=== PATIENT | male | born 1945 | race Caucasian/White ===

== ENCOUNTER 2017-05-23 10:27 | Emergency (ER) | payer OTHER ==
[2017-05-23] MEDS ORDERED: Fentanyl 100 MCG/2 ML VIAL ONE ×3 (11:13→13:51)
--- NOTE | 2017-05-23 11:39 | CT ---
CT BRAIN WITHOUT CONTRAST: Date: 05/23/17 HISTORY: 6' fall while hanging [place] lights, with head pain. COMPARISON: Prior exam dated 03/08/08. FINDINGS: No acute intracranial infarct, hemorrhage, or hydrocephalus is present. Chronic small vessel white ma tter ischemic change is similar. Septum pellucidum and third ventricle are midline. Small mucus reten tion cysts are seen within the inferior aspect of both maxillary sinuses. Skull intact. IMPRESSION: No acute intracranial abnormality. POS: [facility]
--- NOTE | 2017-05-23 11:56 | CT ---
CT OF THE CERVICAL SPINE WITHOUT CONTRAST: INDICATION: Fall 6 foot. Neck pain. COMPARISON: Prior exam dated 08/26/15. FINDINGS: No acute fracture or subluxation is evident. Lung apices are clear. Prevertebral soft tissues appea r within normal limits. There is an ACDF C5 through C7. This does not appear appreciably changed fr om the comparison. Multilevel spondylosis of the cervical spine is similar-appearing. IMPRESSION: No acute fracture or subluxation demonstrated. POS: [facility]
--- NOTE | 2017-05-23 12:07 | CT ---
CT OF THE LUMBAR SPINE WITHOUT CONTRAST: INDICATION: Fell 6 feet while hanging [place] now with back pain. FINDINGS: There is a mild superior end plate compression abnormality of L2. There is multilevel degenerative d isk disease most pronounced at L3-4 through L5-S1. There are laminectomy changes at L4. There is re moval of the spinous process at L3. There are scattered vascular calcifications involving the abdomi nopelvic vasculature. There is prominent atrophy of the left kidney. IMPRESSION: 1. Superior end plate compression fracture of L2. 2. Moderate spondylosis of the lumbar spine. 3. Significant atrophy of the left kidney. POS: [facility]
--- NOTE | 2017-05-23 12:11 | CT ---
THORACIC SPINE CT WITHOUT CONTRAST: Date: 05/23/17 HISTORY: 6' fall while hanging [place]. Patient landed on his hip and hit his left shoulder upon fall . Post-traumatic pain. COMPARISON: None. TECHNIQUE: A thoracic spine CT is performed without contrast. Reformatted images are submitted for interpretatio n. FINDINGS: No mediastinal mass, lymphadenopathy, or hematoma. Heart size appears to be within normal limits. The re are coronary artery calcifications. There is calcification of the aorta. No evidence of aneurysm. Visualized upper solid organs are grossly unremarkable. There is atrophy of the left kidney, likely chronic and possibly congenital. No retroperitoneal mass, lymphadenopathy, or hematoma. No paraspinal hematoma. There is patchy ground-glass opacification throughout the lung parenchyma which may represent chronic edema superimposed upon chronic change. There is multilevel degenerative disc disease with loss of disc space height and osteophyte formation . Vacuum disc phenomenon is identified. Thoracic spine vertebral body height is maintained. No fractu re. No malalignment. Limited evaluation of the contents of the central spinal canal and neural foramina due to technique. No high grade central canal stenosis or high grade foraminal narrowing. Incompletely evaluated cervical fusion hardware. At the T4-T5 level, there is soft tissue density with a small calcification. Evaluation is limited an d incomplete. There is associated mild central canal stenosis. Nonemergent thoracic spine MRI can be performed. IMPRESSION: 1. No fracture. 2. Degenerative changes of thoracic spine. 3. Soft tissue density with calcification in the anterior epidural space at the T4-T5 level, incompl etely evaluated. No evidence of high grade central canal stenosis. Nonemergent thoracic spine MRI. POS: [facility]
--- NOTE | 2017-05-23 12:17 | RAD ---
3 VIEWS LEFT SHOULDER: Date: 05/23/17 HISTORY: Patient fell from a height of 6' while hanging [place] lights. COMPARISON: None. FINDINGS: Limited evaluation of the glenohumeral joint space due to patient position. There does appear to be d egenerative change in the left glenohumeral joint space. Osteophyte change and enthesopathic change i s noted. No fracture or dislocation. IMPRESSION: Degenerative changes. No fracture or dislocation. POS: [facility]
== END 2017-05-23 14:38 | disposition home or self-care (01) ==
LOC: ERS 10:27
DX: S32.029A Unspecified fracture of second lumbar vertebra, initial encounter for closed fracture (principal); M25.512 Pain in left shoulder; E78.5 Hyperlipidemia, unspecified; I10 Essential (primary) hypertension; E11.9 Type 2 diabetes mellitus without complications; F32.9 Major depressive disorder, single episode, unspecified; Z85.828 Personal history of other malignant neoplasm of skin; W11.XXXA Fall on and from ladder, initial encounter
CPT/HCPCS: 70450; 72125; 72128; 72131; 96372; J3010

== ENCOUNTER 2019-12-17 19:20 | Emergency (ER) | payer OTHER ==
[~2019-12-17 19:20] MED LIST: Iopamidol 370 76% 100 ML VIAL ONE
[2019-12-17 21:07] LABS: #Basophils 0.1 thou/uL (0.0-0.2); #Lymphocytes 1.5 thou/uL (1.20-3.40); #Monocytes 1.2 thou/uL (0.11-0.59); #Neutrophils 9.6 thou/uL (1.40-6.50); %Basophils 0.5 % (0.0-1.0); %Eosinophils 0.3 % (0.0-10.0); %Lymphocytes 11.9 % (21.0-51.0); %Neutrophils 77.3 % (42.0-75.0); Hemoglobin 15.1 g/dL (14.0-18.0); Mean Corpuscular HGB CONC 35.3 g/dL (32.0-36.0); Mean Corpuscular Hemoglobin 33.3 pg (27.0-31.0); Mean Corpuscular Volume 94.4 fL (78.0-98.0); Mean Platelet Volume 8.2 fL (7.4-10.4); Platelet Count 182 thou/uL (130-400); RBC Distribution Width 11.9 % (11.5-14.5); Red Blood Cell (RBC) Count 4.54 mill/uL (4.70-6.10); White Blood Cell (WBC) Count 12.4 thou/uL (4.8-10.8)
[2019-12-17 21:22] LABS: ALT (SGPT) 15 U/L (8-55); AST (SGOT) 11 U/L (5-34); Albumin 3.9 g/dL (3.4-4.8); Alkaline Phosphatase 92 U/L (40-110); Anion Gap 14 mmol/L (10-20); BUN (Urea Nitrogen) 15 mg/dL (8.4-25.7); Bilirubin, Total 0.9 mg/dL (0.2-1.2); Calc. Creatinine Clearance 0 mL/min (70-130); Calcium 9.2 mg/dL (7.8-10.44); Carbon Dioxide 21 mmol/L (23-31); Chloride 104 mmol/L (98-107); Estimated GFR-MDRD 61; Globulin 2.8 g/dL (2.4-3.5); Glucose 323 mg/dL (83-110); Potassium 4.5 mmol/L (3.5-5.1); Protein, Total 6.7 g/dL (5.8-8.1); Sodium 134 mmol/L (136-145)
[2019-12-17 22:11] LABS: Bacteria/HPF None Seen HPF (None Seen); Bilirubin Negative (Negative); Blood, Urine Negative (Negative); Clarity Clear (Clear); Glucose, Urine (Dipstick) Greater than 1000 mg/dL (Negative); Leukocyte Negative Leu/uL (Negative); Mucous/LPF Rare LPF (<2+); Nitrite Negative (Negative); Protein, Urine (Dipstick) 200 mg/dL (Neg-Trace); RBC/HPF None Seen HPF (0-3); Squamous Epithelial None Seen HPF (0-3); Urobilinogen Normal mg/dL (Less than 2); WBC/HPF 0-3 HPF (0-3)
[2019-12-17] MEDS ORDERED: Cefepime 2 GM VIAL ONE (22:37)
[2019-12-18 00:04] LABS: Lactic Acid 2.3 mmol/L (0.5-2.2)
--- NOTE | 2019-12-18 08:53 | CT ---
CT OF FACIAL BONES PERFORMED WITH INTRAVENOUS CONTRAST ENHANCEMENT: HISTORY: Facial swelling. FINDINGS: The visualized brain parenchyma shows some atrophic change. The carotid and submandibular glands brian ear unremarkable. There is considerable scan artifact related to dental work performed on the maxill a. The parapharyngeal spaces appear clear. The tonsillar region appears unremarkable. Minimal muco jyothi change is seen in the right maxillary sinus. I do not appreciate any evidence of any dental dise ase that would explain any swelling. IMPRESSION: No acute findings. POS: [facility]
--- NOTE | 2019-12-20 12:14 | EKG ---
Test Reason : Blood Pressure : / mmHG Vent. Rate : 082 BPM Atrial Rate : 082 BPM P-R Int : 144 ms QRS Dur : 082 ms QT Int : 368 ms P-R-T Axes : 036 036 085 degrees QTc Int : 429 ms Poor data quality, interpretation may be adversely affected Normal sinus rhythm Possible Inferior infarct , age undetermined Abnormal ECG Confirmed by JERRELL ZALDIVAR, MAR ([id number]), production editor SONIA PENN ([id number]) on 12/20/2019 12:13:52 PM Referred By: Confirmed By:MAR ALLAN MD
== END 2019-12-18 04:35 | disposition short-term general hospital (02) ==
LOC: ERS 19:20
DX: L03.211 Cellulitis of face (principal); D72.829 Elevated white blood cell count, unspecified; R74.0 Nonspecific elevation of levels of transaminase and lactic acid dehydrogenase [LDH]; E11.9 Type 2 diabetes mellitus without complications; E78.5 Hyperlipidemia, unspecified; I10 Essential (primary) hypertension; F32.9 Major depressive disorder, single episode, unspecified; Z79.899 Other long term (current) drug therapy
CPT/HCPCS: 36415; 70487; 80053; 81003; 81015; 83605; 85025; 87040; 93005; 96365; 96366; 96367; J0692; J3370; J7030; Q9967

== ENCOUNTER 2020-09-23 15:12 | Emergency (ER) | payer OTHER ==
[2020-09-23 16:12] LABS: #Basophils 0.1 thou/uL (0.0-0.2); #Eosinphils 0.3 thou/uL (0.0-0.7); #Lymphocytes 2.7 thou/uL (1.20-3.40); #Monocytes 0.9 thou/uL (0.11-0.59); #Neutrophils 6.7 thou/uL (1.40-6.50); %Basophils 0.5 % (0.0-1.0); %Eosinophils 3.2 % (0.0-10.0); %Lymphocytes 24.8 % (21.0-51.0); %Monocytes 8.6 % (0.0-10.0); %Neutrophils 62.8 % (42.0-75.0); Hemoglobin 16.8 g/dL (14.0-18.0); Mean Corpuscular HGB CONC 35.1 g/dL (32.0-36.0); Mean Platelet Volume 8.1 fL (7.4-10.4); Platelet Count 204 thou/uL (130-400); RBC Distribution Width 12.3 % (11.5-14.5); Red Blood Cell (RBC) Count 5.09 mill/uL (4.70-6.10); White Blood Cell (WBC) Count 10.7 thou/uL (4.8-10.8)
[2020-09-23 16:32] LABS: ALT (SGPT) 15 U/L (8-55); AST (SGOT) 9 U/L (5-34); Alkaline Phosphatase 105 U/L (40-110); Anion Gap 15 mmol/L (10-20); BUN (Urea Nitrogen) 14 mg/dL (8.4-25.7); Bilirubin, Total 1.2 mg/dL (0.2-1.2); Calc. Creatinine Clearance 0 mL/min (70-130); Calcium 9.4 mg/dL (7.8-10.44); Carbon Dioxide 24 mmol/L (23-31); Chloride 104 mmol/L (98-107); Globulin 2.8 g/dL (2.4-3.5); Glucose 252 mg/dL (83-110); Potassium 3.8 mmol/L (3.5-5.1); Protein, Total 6.8 g/dL (5.8-8.1); Sodium 139 mmol/L (136-145)
[2020-09-23] MEDS ORDERED: Morphine 4 MG/ML VIAL ONE (16:45)
[2020-09-23] MEDS ORDERED: Ondansetron PF 4 MG/2 ML Vial ONE (16:45)
[2020-09-23] MEDS ORDERED: Ketorolac Tromethamine 30 MG/ML VIAL ONE (20:12)
== END 2020-09-23 20:27 | disposition home or self-care (01) ==
LOC: ERS 15:12
DX: M25.551 Pain in right hip (principal); E11.9 Type 2 diabetes mellitus without complications; E78.5 Hyperlipidemia, unspecified; E78.00 Pure hypercholesterolemia, unspecified; I10 Essential (primary) hypertension; W01.0XXA Fall on same level from slipping, tripping and stumbling without subsequent striking against object, initial encounter
CPT/HCPCS: 36415; 72192; 72195; 80053; 85025; 85652; 86140; 96374; 96375; J1885; J2270; J2405

== ENCOUNTER 2020-10-17 18:00 | Emergency (ER) | payer OTHER ==
[2020-10-17] MEDS ORDERED: Ketorolac Tromethamine 30 MG/ML VIAL ONE (20:45)
[2020-10-17] MEDS ORDERED: Morphine 4 MG/ML VIAL ONE (20:45)
== END 2020-10-17 21:47 | disposition home or self-care (01) ==
LOC: ERS 18:00
DX: M54.5 Low back pain (principal); E11.9 Type 2 diabetes mellitus without complications; E78.5 Hyperlipidemia, unspecified; I10 Essential (primary) hypertension; Z79.899 Other long term (current) drug therapy; Z79.82 Long term (current) use of aspirin; Z79.4 Long term (current) use of insulin
CPT/HCPCS: 96372; 99283; J1885; J2270

== ENCOUNTER 2021-03-17 09:33 | Outpatient (CLI) | payer OTHER | END 2021-03-17 09:34 | disposition home or self-care (01) | LOC: TBSIIMAG 09:33 | PROVIDERS: ATTEND Neurological Surgery | DX: M25.551 Pain in right hip (principal) ==

== ENCOUNTER 2022-07-25 13:51 | Inpatient (IN) | payer OTHER ==
[2022-07-25 15:10] LABS: #Basophils 0.1 thou/uL (0.0-0.2); #Eosinphils 0.4 thou/uL (0.0-0.7); #Lymphocytes 2.5 thou/uL (1.20-3.40); #Monocytes 1.1 thou/uL (0.11-0.59); #Neutrophils 5.2 thou/uL (1.40-6.50); %Basophils 0.9 % (0.0-1.0); %Eosinophils 3.8 % (0.0-10.0); %Lymphocytes 26.9 % (21.0-51.0); %Monocytes 11.7 % (0.0-10.0); %Neutrophils 56.7 % (42.0-75.0); Hemoglobin 16.8 g/dL (14.0-18.0); Mean Corpuscular Hemoglobin 31.8 pg (27.0-31.0); Mean Corpuscular Volume 96.4 fl (78.0-98.0); Mean Platelet Volume 8.1 fL (7.4-10.4); Platelet Count 252 10x3/uL (130-400); RBC Distribution Width 12.5 % (11.5-14.5); Red Blood Cell (RBC) Count 5.28 mill/uL (4.70-6.10); White Blood Cell (WBC) Count 9.2 10x3/uL (4.8-10.8)
[2022-07-25 15:21] LABS: PTT 28.8 sec (22.9-36.1); Prothrombin Time 13.1 sec (12.0-14.7)
[2022-07-25 15:22] LABS: Bacteria/HPF None Seen HPF (None Seen); Bilirubin Negative (Negative); Blood, Urine Negative (Negative); Clarity Clear (Clear); Glucose, Urine (Dipstick) Greater than 1000 mg/dL (Negative); Ketone, Urine Negative (Negative); Leukocyte Negative Leu/uL (Negative); Nitrite Negative (Negative); Protein, Urine (Dipstick) 30 mg/dL (Neg-Trace); RBC/HPF None Seen HPF (0-3); Specific Gravity, Urine 1.027 (1.002-1.036); Squamous Epithelial None Seen HPF (0-3); Urobilinogen Normal mg/dL (Less than 2); WBC/HPF 0-3 HPF (0-3); pH, Urine 5.5 (5.0-9.0)
[2022-07-25 15:30] LABS: ALT (SGPT) 14 U/L (8-55); AST (SGOT) 14 U/L (5-34); Albumin 3.9 g/dL (3.4-4.8); Alkaline Phosphatase 98 U/L (40-110); Anion Gap 17 mmol/L (10-20); BUN (Urea Nitrogen) 18 mg/dL (8.4-25.7); Bilirubin, Total 0.4 mg/dL (0.2-1.2); Calc. Creatinine Clearance 0 mL/min (70-130); Calcium 9.7 mg/dL (7.8-10.44); Carbon Dioxide 24 mmol/L (23-31); Chloride 103 mmol/L (98-107); Estimated GFR 60; Globulin 2.6 g/dL (2.4-3.5); Glucose 157 mg/dL (83-110); Protein, Total 6.5 g/dL (5.8-8.1); Sodium 140 mmol/L (136-145)
[2022-07-25] MEDS ORDERED: hydrALAZINE 20 MG/ML VIAL SLOW IVP PRN (16:37)
[2022-07-25] MEDS ORDERED: Ondansetron PF 4 MG/2 ML Vial IVP PRN (16:37)
[2022-07-25] MEDS ORDERED: Ondansetron ODT 4 MG TAB PO PRN (16:37)
[2022-07-25] MEDS ORDERED: Acetaminophen 650 MG Suppository PR PRN (16:37)
[2022-07-25] MEDS ORDERED: Dextrose 5% in Water 1,000 ML IV PRN (16:41)
[2022-07-25] MEDS ORDERED: Insulin Regular 300 UNITS/3 ML VIAL SC PRN (16:41)
[2022-07-25] MEDS ORDERED: Dextrose 50% Abboject 50 ML SYRINGE SLOW IVP PRN (16:41)
[2022-07-25 17:03] LABS: SARS-CoV-2 NAA Rapid Test Not Detected (NotDetected)
[2022-07-25] MEDS ORDERED: Aspirin Chewable 81 MG TAB ONE (18:08)
[2022-07-25] MEDS: Acetaminophen 325 MG TAB PO PRN (23:10)
[2022-07-25] MEDS: Apixaban 5 MG TAB PO SCH (23:10)
[2022-07-25] MEDS: Atorvastatin Calcium 40 MG TAB PO SCH (23:10)
[2022-07-25] MEDS: Insulin NPH Human Isophane 100 UNIT/ML (10 ML VIAL) SC SCH (23:11)
[2022-07-26 00:05] VITALS: BMI 30.1
[2022-07-26 05:33] LABS: #Eosinphils 0.4 thou/uL (0.0-0.7); #Lymphocytes 2.4 thou/uL (1.20-3.40); #Monocytes 0.9 thou/uL (0.11-0.59); #Neutrophils 4.1 thou/uL (1.40-6.50); %Basophils 0.2 % (0.0-1.0); %Eosinophils 4.8 % (0.0-10.0); %Lymphocytes 30.8 % (21.0-51.0); %Monocytes 12.1 % (0.0-10.0); %Neutrophils 52.3 % (42.0-75.0); Mean Corpuscular HGB CONC 33.7 g/dL (32.0-36.0); Mean Corpuscular Hemoglobin 32.6 pg (27.0-31.0); Platelet Count 224 10x3/uL (130-400); RBC Distribution Width 12.5 % (11.5-14.5); Red Blood Cell (RBC) Count 5.21 mill/uL (4.70-6.10); White Blood Cell (WBC) Count 7.7 10x3/uL (4.8-10.8)
[2022-07-26 05:53] LABS: Anion Gap 15 mmol/L (10-20); BUN (Urea Nitrogen) 17 mg/dL (8.4-25.7); Calc. Creatinine Clearance 81 mL/min (70-130); Calcium 9.5 mg/dL (7.8-10.44); Carbon Dioxide 21 mmol/L (23-31); Cardiac Risk 3.8 (Less than 4.5); Chloride 106 mmol/L (98-107); Cholesterol 143 mg/dl (< 200 Desired); Estimated GFR 74; Glucose 97 mg/dL (83-110); HDL Cholesterol 38 mg/dL (>60 Neg Risk); LDL Cholesterol, Calculated 61 mg/dL; Potassium 3.7 mmol/L (3.5-5.1); Sodium 138 mmol/L (136-145); Triglycerides 219 mg/dL (Less than 150)
[2022-07-26] MEDS: DULoxetine 60 MG CAP PO SCH (09:22)
[2022-07-26] MEDS: Apixaban 5 MG TAB PO SCH ×2 (09:22→20:14)
[2022-07-26] MEDS: Allopurinol 300 MG TAB PO SCH (09:22)
[2022-07-26] MEDS: Aspirin 81 mg Enteric Coated Tablet PO SCH (09:22)
[2022-07-26] MEDS: Gabapentin 400 MG CAP PO SCH ×2 (09:23→20:14)
[2022-07-26] MEDS: Insulin NPH Human Isophane 100 UNIT/ML (10 ML VIAL) SC SCH ×2 (09:28→20:16)
[2022-07-26] MEDS: Insulin Regular 300 UNITS/3 ML VIAL SC PRN (17:31)
[2022-07-26] MEDS: Atorvastatin Calcium 40 MG TAB PO SCH (20:14)
[2022-07-26] MEDS: Venlafaxine HCl XR 150 MG CAP PO SCH (20:14)
[2022-07-26] MEDS: Acetaminophen 325 MG TAB PO PRN (20:14)
[2022-07-26] MEDS ORDERED: Non-Formulary Item 1 EACH (Gabapentin [Neurontin] 600 MG Tablet) PO SCH (21:00)
[2022-07-27 05:32] LABS: #Eosinphils 0.4 thou/uL (0.0-0.7); #Lymphocytes 2.7 thou/uL (1.20-3.40); #Neutrophils 4.7 thou/uL (1.40-6.50); %Basophils 0.5 % (0.0-1.0); %Eosinophils 4.4 % (0.0-10.0); %Lymphocytes 30.6 % (21.0-51.0); %Monocytes 11.4 % (0.0-10.0); %Neutrophils 53.2 % (42.0-75.0); Hemoglobin 17.7 g/dL (14.0-18.0); Mean Corpuscular HGB CONC 32.8 g/dL (32.0-36.0); Mean Corpuscular Hemoglobin 31.7 pg (27.0-31.0); Mean Corpuscular Volume 96.8 fl (78.0-98.0); Platelet Count 240 10x3/uL (130-400); RBC Distribution Width 12.6 % (11.5-14.5); Red Blood Cell (RBC) Count 5.57 mill/uL (4.70-6.10); White Blood Cell (WBC) Count 8.8 10x3/uL (4.8-10.8)
[2022-07-27 05:38] LABS: Hemoglobin A1c 6.2 % (4.0-6.0)
[2022-07-27 05:49] LABS: Anion Gap 14 mmol/L (10-20); BUN (Urea Nitrogen) 17 mg/dL (8.4-25.7); Calc. Creatinine Clearance 71 mL/min (70-130); Carbon Dioxide 24 mmol/L (23-31); Chloride 103 mmol/L (98-107); Estimated GFR 63; Glucose 127 mg/dL (83-110); Potassium 4.2 mmol/L (3.5-5.1); Sodium 137 mmol/L (136-145)
[2022-07-27] MEDS: Venlafaxine HCl XR 150 MG CAP PO SCH (08:45)
[2022-07-27] MEDS: Gabapentin 400 MG CAP PO SCH (08:45)
[2022-07-27] MEDS: Aspirin 81 mg Enteric Coated Tablet PO SCH (08:45)
[2022-07-27] MEDS: Apixaban 5 MG TAB PO SCH (08:45)
[2022-07-27] MEDS: Allopurinol 300 MG TAB PO SCH (08:45)
[2022-07-27] MEDS: DULoxetine 60 MG CAP PO SCH (08:46)
[2022-07-27] MEDS: Insulin Regular 300 UNITS/3 ML VIAL SC PRN (12:17)
[2022-07-27 12:37] VITALS: TEMP 97.7
[2022-07-27 13:17] VITALS: BP 149/97
== END 2022-07-27 13:55 | disposition home health service (06) | DRG 65 ==
LOC: ERS 13:51 → NEURO 16:12 → OBSVTOIN 07-26 09:05
PROVIDERS: ADMIT Internal Medicine; ATTEND Family Medicine
DX: I63.9 Cerebral infarction, unspecified (principal); G81.94 Hemiplegia, unspecified affecting left nondominant side; I10 Essential (primary) hypertension; E78.5 Hyperlipidemia, unspecified; E78.00 Pure hypercholesterolemia, unspecified; E66.9 Obesity, unspecified; Z20.822 Contact with and (suspected) exposure to COVID-19; E11.40 Type 2 diabetes mellitus with diabetic neuropathy, unspecified; Z79.82 Long term (current) use of aspirin; Z79.84 Long term (current) use of oral hypoglycemic drugs; Z79.899 Other long term (current) drug therapy; Z86.73 Personal history of transient ischemic attack (TIA), and cerebral infarction without residual deficits; Z90.49 Acquired absence of other specified parts of digestive tract; Z98.890 Other specified postprocedural states; Z95.1 Presence of aortocoronary bypass graft; Z86.711 Personal history of pulmonary embolism; Z79.01 Long term (current) use of anticoagulants; Z68.30 Body mass index [BMI] 30.0-30.9, adult
CPT/HCPCS: 36415; 36416; 70450; 70496; 70498; 70551; 71045; 80048; 80053; 80061; 81003; 81015; 83036; 84484; 85025; 85610; 85730; 86140; 93005; 93306; J1815; U0002

== ENCOUNTER 2023-03-03 13:52 | Inpatient (IN) | payer OTHER ==
[2023-03-03 15:04] LABS: ALT (SGPT) 15 U/L (8-55); AST (SGOT) 16 U/L (5-34); Acetaminophen Less than 10 mcg/mL (10.0-30.0); Albumin 3.9 g/dL (3.4-4.8); Alcohol Less than 10.0 mg/dL (Less than 10); Alkaline Phosphatase 138 U/L (40-110); Anion Gap 14 mmol/L (10-20); BUN (Urea Nitrogen) 16 mg/dL (8.4-25.7); Bilirubin, Total 0.4 mg/dL (0.2-1.2); Calc. Creatinine Clearance 0 mL/min (70-130); Calcium 9.7 mg/dL (7.8-10.44); Carbon Dioxide 23 mmol/L (23-31); Chloride 104 mmol/L (98-107); Estimated GFR 62; Globulin 2.9 g/dL (2.4-3.5); Glucose 135 mg/dL (83-110); Lipase 42 U/L (8-78); Potassium 4.9 mmol/L (3.5-5.1); Protein, Total 6.8 g/dL (5.8-8.1); Salicylate Less than 8.0 mg/dL (15.0-30.0); Sodium 136 mmol/L (136-145)
[2023-03-03 15:12] LABS: #Basophils 0.1 thou/uL (0.0-0.2); #Eosinphils 0.2 thou/uL (0.0-0.7); #Monocytes 0.9 thou/uL (0.11-0.59); #Neutrophils 5.5 thou/uL (1.40-6.50); %Basophils 0.7 % (0.0-1.0); %Eosinophils 2.2 % (0.0-10.0); %Lymphocytes 25.3 % (21.0-51.0); %Monocytes 10.4 % (0.0-10.0); %Neutrophils 60.8 % (42.0-75.0); Hematocrit 53.5 % (42.0-52.0); Hemoglobin 17.7 g/dL (14.0-18.0); Mean Corpuscular HGB CONC 33.1 g/dL (32.0-36.0); Mean Corpuscular Hemoglobin 31.8 pg (27.0-31.0); Mean Corpuscular Volume 96.2 fl (78.0-98.0); Mean Platelet Volume 10.2 fL (7.4-10.4); Platelet Count 216 10x3/uL (130-400); Red Blood Cell (RBC) Count 5.56 mill/uL (4.70-6.10)
[2023-03-03 15:37] LABS: Bacteria/HPF None Seen HPF (None Seen); CAUTI Indications for Culture Alt mental st,lethar; RBC/HPF 0-3 HPF (0-3); Squamous Epithelial 0-3 HPF (0-3); WBC/HPF None Seen HPF (0-3)
[2023-03-03 15:39] LABS: Bilirubin Negative (Negative); Blood, Urine Negative (Negative); Glucose, Urine (Dipstick) >=1000 mg/dL (Negative); Ketone, Urine Negative (Negative); Leukocyte Negative (Negative); Nitrite Negative (Negative); Protein, Urine (Dipstick) Negative (Neg-Trace); Urobilinogen 0.2 mg/dL (Less than 2)
[2023-03-03 15:42] LABS: Clarity Clear (Clear)
[2023-03-03 15:43] LABS: Urine Culture Reflex No No
[2023-03-03 15:44] LABS: Amphetamine Not Detected (NotDetected); Barbiturates Screen Not Detected (NotDetected); Benzodiazepine Screen Not Detected (NotDetected); Cocaine Metabolite Screen Not Detected (NotDetected); Methadone Not Detected (NotDetected); Methamphetamine Not Detected (NotDetected); Opiate Screen Not Detected (NotDetected); Oxycodone Screen Not Detected (NotDetected); Phencyclidine (PCP) Not Detected (NotDetected); THC/Cannabinoid Screen Not Detected (NotDetected); Tricyclic Screen Not Detected (NotDetected)
[2023-03-03 17:45] LABS: Lactic Acid 1.9 mmol/L (0.5-2.2)
[2023-03-03 17:53] LABS: Troponin I Less than 0.010 ng/mL (< 0.028)
[2023-03-03] MEDS ORDERED: Ondansetron PF 4 MG/2 ML Vial IVP PRN (19:00)
[2023-03-03] MEDS ORDERED: Acetaminophen 325 MG TAB PO PRN (19:00)
[2023-03-03] MEDS ORDERED: Ondansetron ODT 4 MG TAB SL PRN (19:00)
[2023-03-03 19:42] VITALS: BMI 29.8
[2023-03-03] MEDS ORDERED: Nitroglycerin 0.4 MG TAB (25 Tab Bottle) SL PRN (20:52)
[2023-03-03] MEDS ORDERED: Acetaminophen 650 MG Suppository PR PRN (20:52)
[2023-03-03] MEDS ORDERED: HumaLOG 300 UNITS/3 ML VIAL SC PRN ×2 (22:07)
[2023-03-03] MEDS ORDERED: Dextrose 50% Abboject 50 ML SYRINGE SLOW IVP PRN (22:07)
[2023-03-03] MEDS ORDERED: Glucagon 1 MG/ML KIT IM PRN (22:07)
[2023-03-03] MEDS ORDERED: Dextrose 5% in Water 1,000 ML IV PRN (22:07)
[2023-03-03] MEDS ORDERED: Apixaban 5 MG TAB PO SCH (22:30)
[2023-03-04 04:47] LABS: #Basophils 0.1 thou/uL (0.0-0.2); #Eosinphils 0.3 thou/uL (0.0-0.7); #Neutrophils 6.6 thou/uL (1.40-6.50); %Basophils 0.5 % (0.0-1.0); %Eosinophils 2.6 % (0.0-10.0); %Lymphocytes 24.3 % (21.0-51.0); %Monocytes 9.8 % (0.0-10.0); %Neutrophils 62.3 % (42.0-75.0); Hematocrit 53.5 % (42.0-52.0); Mean Corpuscular HGB CONC 33.6 g/dL (32.0-36.0); Mean Corpuscular Hemoglobin 31.8 pg (27.0-31.0); Mean Corpuscular Volume 94.5 fl (78.0-98.0); Mean Platelet Volume 10.1 fL (7.4-10.4); Platelet Count 204 10x3/uL (130-400); Red Blood Cell (RBC) Count 5.66 mill/uL (4.70-6.10); White Blood Cell (WBC) Count 10.5 10x3/uL (4.8-10.8)
[2023-03-04 05:12] LABS: Anion Gap 14 mmol/L (10-20); BUN (Urea Nitrogen) 16 mg/dL (8.4-25.7); Calc. Creatinine Clearance 95 mL/min (70-130); Calcium 9.9 mg/dL (7.8-10.44); Carbon Dioxide 24 mmol/L (23-31); Chloride 106 mmol/L (98-107); Estimated GFR 89; Glucose 82 mg/dL (83-110); Potassium 3.8 mmol/L (3.5-5.1); Sodium 140 mmol/L (136-145)
[2023-03-04] MEDS ORDERED: Apixaban 5 MG TAB PO SCH (09:00)
[2023-03-04] MEDS ORDERED: Aspirin Chewable 81 MG TAB PO SCH (09:00)
[2023-03-04] MEDS ORDERED: Venlafaxine HCl XR 150 MG CAP PO SCH ×2 (10:00→21:00)
[2023-03-04] MEDS ORDERED: hydrOXYzine 25 MG TAB PO PRN ×2 (14:50→21:00)
[2023-03-04] MEDS ORDERED: Communication Order-Pharmacy FS ONE (16:08)
[2023-03-04 16:42] LABS: Hematocrit 54.2 % (42.0-52.0); Hemoglobin 17.7 g/dL (14.0-18.0); Platelet Count 220 10x3/uL (130-400)
[2023-03-04] MEDS ORDERED: Acetaminophen 325 MG TAB PO SCH (17:00)
[2023-03-04] MEDS: Venlafaxine HCl XR 150 MG CAP PO SCH (17:35)
[2023-03-04] MEDS ORDERED: Atorvastatin Calcium 40 MG TAB PO SCH (21:00)
[2023-03-04] MEDS: Acetaminophen 500 MG TAB PO SCH (21:25)
[2023-03-04] MEDS: Gabapentin 400 MG CAP PO SCH (21:25)
[2023-03-04] MEDS: HumuLIN 70/30 100 Unit/ ml 10 ml Vial SC SCH (21:29)
[2023-03-05] MEDS ORDERED: metFORMIN XR 500 MG TAB PO SCH (08:00)
[2023-03-05] MEDS: Acetaminophen 500 MG TAB PO SCH (08:36)
[2023-03-05] MEDS: Gabapentin 400 MG CAP PO SCH (08:37)
[2023-03-05] MEDS: Venlafaxine HCl XR 150 MG CAP PO SCH ×2 (08:38→18:05)
[2023-03-05] MEDS ORDERED: Atenolol 50 MG TAB PO SCH (09:00)
[2023-03-05] MEDS ORDERED: Empagliflozin 25 MG TAB PO SCH (09:00)
[2023-03-05] MEDS ORDERED: Losartan 25 MG TAB PO SCH (09:00)
[2023-03-05] MEDS ORDERED: Lisinopril 10 MG TAB PO SCH (09:00)
[2023-03-05] MEDS ORDERED: Aspirin 81 mg Enteric Coated Tablet PO SCH (09:00)
[2023-03-05] MEDS ORDERED: DULoxetine 60 MG CAP PO SCH (09:00)
[2023-03-05] MEDS ORDERED: Allopurinol 300 MG TAB PO SCH (09:00)
[2023-03-05] MEDS ORDERED: Regadenoson 0.4 MG/5 ML SYRINGE ONE (09:32)
[2023-03-05] MEDS: HumuLIN 70/30 100 Unit/ ml 10 ml Vial SC SCH (10:06)
[2023-03-05 15:58] VITALS: BP 152/73; TEMP 97.8
== END 2023-03-05 18:20 | disposition home or self-care (01) | DRG 313 ==
LOC: ERS 13:52 → 2SW 18:35 → OBSVTOIN 03-04 16:37
PROVIDERS: ADMIT Student in an Organized Health Care Education/Training Program; ATTEND Internal Medicine
PROC: C23GYZZ Positron Emission Tomographic (PET) Imaging of Myocardium using Other Radionuclide (ICD-10-PCS; principal; 2023-03-05)
DX: R07.89 Other chest pain (principal); I50.32 Chronic diastolic (congestive) heart failure; E11.9 Type 2 diabetes mellitus without complications; I11.0 Hypertensive heart disease with heart failure; I25.10 Atherosclerotic heart disease of native coronary artery without angina pectoris; G89.29 Other chronic pain; E78.00 Pure hypercholesterolemia, unspecified; Z66 Do not resuscitate; Z79.82 Long term (current) use of aspirin; Z86.73 Personal history of transient ischemic attack (TIA), and cerebral infarction without residual deficits; Z79.01 Long term (current) use of anticoagulants; Z86.718 Personal history of other venous thrombosis and embolism; Z95.1 Presence of aortocoronary bypass graft; Z79.899 Other long term (current) drug therapy; Z79.4 Long term (current) use of insulin; Z90.49 Acquired absence of other specified parts of digestive tract; Z98.890 Other specified postprocedural states
CPT/HCPCS: 36415; 36416; 71045; 78452; 80048; 80061; 80306; 80307; 81001; 83605; 83690; 83880; 84484; 85025; 93005; 93017; 93306; A9500; G0378; J1650; J1815; J2785

== ENCOUNTER 2025-02-12 11:29 | Emergency (ER) | payer OTHER ==
[2025-02-12 12:13] LABS: #Basophils 0.06 10x3/uL (0.0-0.2); #Eosinophils 0.37 10x3/uL (0.0-0.7); #Monocytes 0.86 10x3/uL (0.11-0.59); #Neutrophils 5.15 10x3/uL (1.40-6.50); %Basophils 0.7 % (0.0-1.0); %Eosinophils 4.3 % (0.0-10.0); %Lymphocytes 24.1 % (21.0-51.0); %Monocytes 10.1 % (0.0-10.0); %Neutrophils 60.3 % (42.0-75.0); Hematocrit 49.7 % (42.0-52.0); Hemoglobin 16.1 g/dL (14.0-18.0); Mean Corpuscular Hemoglobin 30.2 pg (27.0-31.0); Mean Corpuscular Volume 93.2 fL (78.0-98.0); Platelet Count 231 10x3/uL (130-400); Red Blood Cell (RBC) Count 5.33 mill/uL (4.70-6.10); White Blood Cell (WBC) Count 8.54 10x3/uL (4.8-10.8)
[2025-02-12 12:34] LABS: ALT (SGPT) 13 U/L (Less than 45); AST (SGOT) 23 U/L (11-34); Albumin 3.5 g/dL (3.1-4.5); Alkaline Phosphatase 109 U/L (40-110); Anion Gap 14 mmol/L (10-20); BUN (Urea Nitrogen) 14 mg/dL (8.4-25.7); Bilirubin, Total 0.7 mg/dL (0.3-1.2); Calc. Creatinine Clearance 0 mL/min (70-130); Calcium 9.0 mg/dL (7.8-10.44); Carbon Dioxide 25 mmol/L (23-31); Chloride 104 mmol/L (98-107); Globulin 2.8 g/dL (2.4-3.5); Glucose 134 mg/dL (83-110); Lipase 21 U/L (8-78); Potassium 3.9 mmol/L (3.5-5.1); Sodium 139 mmol/L (136-145)
== END 2025-02-12 15:10 | disposition home or self-care (01) ==
LOC: ERS 11:29
DX: K59.00 Constipation, unspecified (principal); I25.2 Old myocardial infarction; I10 Essential (primary) hypertension; E11.9 Type 2 diabetes mellitus without complications; E78.00 Pure hypercholesterolemia, unspecified; Z86.73 Personal history of transient ischemic attack (TIA), and cerebral infarction without residual deficits; Z90.49 Acquired absence of other specified parts of digestive tract; Z95.5 Presence of coronary angioplasty implant and graft; Z79.899 Other long term (current) drug therapy; Z79.82 Long term (current) use of aspirin; Z79.4 Long term (current) use of insulin; Z79.01 Long term (current) use of anticoagulants
CPT/HCPCS: 70450; 71045; 74177; 80053; 83690; 84484; 85025; 93005

== ENCOUNTER 2025-02-16 08:53 | Outpatient (CLI) | payer OTHER ==
[2025-02-16 10:42] LABS: INR-International Normal Ratio 1.1; Prothrombin Time 14.3 sec (12.0-14.7)
== END 2025-02-16 08:54 | disposition home or self-care (01) ==
LOC: LABBT 08:53
PROVIDERS: ATTEND Orthopaedic Surgery
DX: Z01.812 Encounter for preprocedural laboratory examination (principal); M17.12 Unilateral primary osteoarthritis, left knee
CPT/HCPCS: 83036; 85610; 87081

== ENCOUNTER 2025-02-16 09:36 | Outpatient (CLI) | payer OTHER | END 2025-02-16 09:37 | disposition home or self-care (01) | LOC: CT 09:36 | PROVIDERS: ATTEND Orthopaedic Surgery | DX: M17.12 Unilateral primary osteoarthritis, left knee (principal) ==

== ENCOUNTER 2025-02-23 06:24 | Inpatient (IN) | payer OTHER ==
[2025-02-16 09:11] VITALS: BMI 27.3
[2025-02-23] MEDS ORDERED: Tranexamic Acid 1,000 MG/10 ML VIAL ONE (07:35)
[2025-02-23] MEDS ORDERED: Vancomycin HCl 1.5 GM VIAL ONE (07:36)
[2025-02-23] MEDS ORDERED: Lidocaine 1% (PF) 30 ML VIAL ONE (07:48)
[2025-02-23] MEDS ORDERED: Ropivacaine 0.5% HCl/PF (150 MG/30 ML VIAL) ONE (07:48)
[2025-02-23] MEDS ORDERED: Ondansetron PF 4 MG/2 ML Vial IVP PRN ×2 (09:00→11:59)
[2025-02-23] MEDS ORDERED: Ropivacaine 0.2% 550 ML 550 ML NERVE BLCK SCH (09:00)
[2025-02-23] MEDS ORDERED: Bupivacaine 0.25% HCL 30 ML VIAL ONE (09:18)
[2025-02-23] MEDS ORDERED: fentaNYL PF 100 MCG/2 ML SYRINGE ONE ×2 (09:23→12:03)
[2025-02-23] MEDS ORDERED: PROPOFOL 20 ML ONE (09:23)
[2025-02-23] MEDS ORDERED: CEFAZOLIN 2 GM VIAL ONE (09:34)
[2025-02-23] MEDS ORDERED: PHENYLEPHRINE-NS 100 MCG/ML 10 ML SYRINGE ONE ×3 (10:53→11:24)
[2025-02-23] MEDS ORDERED: Ondansetron PF 4 MG/2 ML Vial ONE (11:08)
[2025-02-23] MEDS ORDERED: HumuLIN 70/30 100 Unit/ml 10 ml Vial SC PRN (11:59)
[2025-02-23] MEDS: Losartan 25 MG TAB PO SCH (13:50)
[2025-02-23] MEDS: Multivitamin W/ Minerals 1 TAB PO SCH (13:50)
[2025-02-23] MEDS: Atenolol 50 MG TAB PO SCH (13:50)
[2025-02-23] MEDS: Allopurinol 300 MG TAB PO SCH (13:50)
[2025-02-23] MEDS: metFORMIN 500 MG TAB PO SCH (13:50)
[2025-02-23] MEDS ORDERED: Glucagon 1 MG/ML KIT IM PRN (15:41)
[2025-02-23] MEDS ORDERED: Dextrose 50% Abboject 50 ML SYRINGE SLOW IVP PRN (15:41)
[2025-02-23 17:09] LABS: #Basophils 0.07 10x3/uL (0.0-0.2); #Eosinophils 0.03 10x3/uL (0.0-0.7); #Monocytes 1.46 10x3/uL (0.11-0.59); #Neutrophils 12.00 10x3/uL (1.40-6.50); %Basophils 0.4 % (0.0-1.0); %Eosinophils 0.2 % (0.0-10.0); %Lymphocytes 16.3 % (21.0-51.0); %Monocytes 9.0 % (0.0-10.0); %Neutrophils 73.6 % (42.0-75.0); Hematocrit 50.9 % (42.0-52.0); Hemoglobin 15.9 g/dL (14.0-18.0); Mean Corpuscular Hemoglobin 31.0 pg (27.0-31.0); Mean Corpuscular Volume 99.2 fL (78.0-98.0); Platelet Count 248 10x3/uL (130-400); Red Blood Cell (RBC) Count 5.13 mill/uL (4.70-6.10); White Blood Cell (WBC) Count 16.29 10x3/uL (4.8-10.8)
[2025-02-23 17:24] LABS: ALT (SGPT) 14 U/L (Less than 45); AST (SGOT) 16 U/L (11-34); Albumin 3.6 g/dL (3.1-4.5); Alkaline Phosphatase 111 U/L (40-110); Anion Gap 20 mmol/L (10-20); BUN (Urea Nitrogen) 18 mg/dL (8.4-25.7); Bilirubin, Total 0.8 mg/dL (0.3-1.2); Calc. Creatinine Clearance 64 mL/min (70-130); Calcium 9.2 mg/dL (7.8-10.44); Carbon Dioxide 21 mmol/L (23-31); Chloride 105 mmol/L (98-107); Globulin 2.4 g/dL (2.4-3.5); Glucose 176 mg/dL (83-110); Magnesium 1.7 mg/dL (1.6-2.6); Potassium 4.1 mmol/L (3.5-5.1); Sodium 142 mmol/L (136-145)
[2025-02-23] MEDS: HYDROcodone/Acetaminophen 10/325 mg Tablet PO PRN (18:19)
[2025-02-23] MEDS: Gabapentin 300 MG CAP PO SCH (20:21)
[2025-02-23] MEDS: Senokot S 8.6-50 MG TAB PO SCH (20:22)
[2025-02-23] MEDS: Ferrous Gluconate 324 MG TAB PO SCH (20:22)
[2025-02-24] MEDS: HYDROcodone/Acetaminophen 10/325 mg Tablet PO PRN (01:06)
[2025-02-24 05:57] LABS: #Basophils 0.08 10x3/uL (0.0-0.2); #Eosinophils 0.13 10x3/uL (0.0-0.7); #Monocytes 1.94 10x3/uL (0.11-0.59); #Neutrophils 10.03 10x3/uL (1.40-6.50); %Basophils 0.6 % (0.0-1.0); %Eosinophils 0.9 % (0.0-10.0); %Lymphocytes 13.7 % (21.0-51.0); %Monocytes 13.7 % (0.0-10.0); %Neutrophils 70.7 % (42.0-75.0); Hematocrit 47.3 % (42.0-52.0); Hemoglobin 15.0 g/dL (14.0-18.0); Mean Corpuscular Hemoglobin 30.6 pg (27.0-31.0); Mean Corpuscular Volume 96.5 fL (78.0-98.0); Platelet Count 231 10x3/uL (130-400); Red Blood Cell (RBC) Count 4.90 mill/uL (4.70-6.10); White Blood Cell (WBC) Count 14.18 10x3/uL (4.8-10.8)
[2025-02-24 06:05] LABS: ALT (SGPT) 9 U/L (Less than 45); AST (SGOT) 16 U/L (11-34); Albumin 3.3 g/dL (3.1-4.5); Alkaline Phosphatase 98 U/L (40-110); Anion Gap 15 mmol/L (10-20); BUN (Urea Nitrogen) 14 mg/dL (8.4-25.7); Bilirubin, Total 1.0 mg/dL (0.3-1.2); Calc. Creatinine Clearance 67 mL/min (70-130); Calcium 8.9 mg/dL (7.8-10.44); Carbon Dioxide 22 mmol/L (23-31); Chloride 106 mmol/L (98-107); Globulin 2.8 g/dL (2.4-3.5); Glucose 156 mg/dL (83-110); Magnesium 1.7 mg/dL (1.6-2.6); Potassium 4.0 mmol/L (3.5-5.1); Sodium 139 mmol/L (136-145)
[2025-02-24] MEDS: Aspirin 81 mg Enteric Coated Tablet PO SCH (09:52)
[2025-02-24] MEDS: Losartan 25 MG TAB PO SCH (09:53)
[2025-02-24] MEDS: metFORMIN 500 MG TAB PO SCH (09:53)
[2025-02-24] MEDS: Atenolol 50 MG TAB PO SCH (09:53)
[2025-02-24] MEDS: Multivitamin W/ Minerals 1 TAB PO SCH (09:54)
[2025-02-24] MEDS: Allopurinol 300 MG TAB PO SCH (09:54)
[2025-02-24] MEDS: Apixaban 5 MG TAB PO SCH (21:58)
[2025-02-25 05:26] LABS: Hematocrit 46.2 % (42.0-52.0); Hemoglobin 14.4 g/dL (14.0-18.0); Mean Corpuscular Hemoglobin 30.6 pg (27.0-31.0); Mean Corpuscular Volume 98.3 fL (78.0-98.0); Platelet Count 196 10x3/uL (130-400); Red Blood Cell (RBC) Count 4.70 mill/uL (4.70-6.10); White Blood Cell (WBC) Count 14.95 10x3/uL (4.8-10.8)
[2025-02-25 05:34] LABS: #Basophils 0.05 10x3/uL (0.0-0.2); #Eosinophils 0.18 10x3/uL (0.0-0.7); #Monocytes 2.05 10x3/uL (0.11-0.59); #Neutrophils 11.37 10x3/uL (1.40-6.50); %Basophils 0.3 % (0.0-1.0); %Eosinophils 1.2 % (0.0-10.0); %Lymphocytes 10.9 % (21.0-51.0); %Monocytes 13.3 % (0.0-10.0); %Neutrophils 73.8 % (42.0-75.0); Hematocrit 46.0 % (42.0-52.0); Hemoglobin 14.6 g/dL (14.0-18.0); Mean Corpuscular Hemoglobin 31.1 pg (27.0-31.0); Mean Corpuscular Volume 97.9 fL (78.0-98.0); Platelet Count 192 10x3/uL (130-400); Red Blood Cell (RBC) Count 4.70 mill/uL (4.70-6.10); White Blood Cell (WBC) Count 15.41 10x3/uL (4.8-10.8)
[2025-02-25 05:58] LABS: ALT (SGPT) 8 U/L (Less than 45); AST (SGOT) 21 U/L (11-34); Albumin 2.9 g/dL (3.1-4.5); Alkaline Phosphatase 83 U/L (40-110); Anion Gap 12 mmol/L (10-20); BUN (Urea Nitrogen) 20 mg/dL (8.4-25.7); Bilirubin, Total 1.2 mg/dL (0.3-1.2); Calc. Creatinine Clearance 55 mL/min (70-130); Calcium 9.5 mg/dL (7.8-10.44); Carbon Dioxide 24 mmol/L (23-31); Chloride 106 mmol/L (98-107); Globulin 2.9 g/dL (2.4-3.5); Glucose 159 mg/dL (83-110); Magnesium 1.9 mg/dL (1.6-2.6); Potassium 4.1 mmol/L (3.5-5.1); Sodium 138 mmol/L (136-145)
[2025-02-25] MEDS: Acetaminophen 325 MG TAB PO PRN (09:08)
[2025-02-26 02:44] LABS: Bacteria/HPF None Seen HPF (None Seen); CAUTI Indications for Culture Alt mental st,lethar; Glucose, Urine (Dipstick) Greater than 1000 mg/dL (Negative); Leukocyte Negative Leu/uL (Negative); Protein, Urine (Dipstick) 20 mg/dL (Neg-Trace); RBC/HPF 0-3 HPF (0-3); Specific Gravity, Urine 1.032 (1.002-1.036); WBC/HPF 0-3 HPF (0-3)
[2025-02-26 02:46] LABS: Urine Culture Reflex No No
[2025-02-26 05:31] LABS: #Basophils 0.03 10x3/uL (0.0-0.2); #Eosinophils 0.22 10x3/uL (0.0-0.7); #Monocytes 1.42 10x3/uL (0.11-0.59); #Neutrophils 8.41 10x3/uL (1.40-6.50); %Basophils 0.3 % (0.0-1.0); %Eosinophils 1.9 % (0.0-10.0); %Lymphocytes 12.7 % (21.0-51.0); %Monocytes 12.2 % (0.0-10.0); %Neutrophils 72.4 % (42.0-75.0); Hematocrit 41.2 % (42.0-52.0); Hemoglobin 13.0 g/dL (14.0-18.0); Mean Corpuscular Hemoglobin 30.7 pg (27.0-31.0); Mean Corpuscular Volume 97.2 fL (78.0-98.0); Platelet Count 184 10x3/uL (130-400); Red Blood Cell (RBC) Count 4.24 mill/uL (4.70-6.10); White Blood Cell (WBC) Count 11.62 10x3/uL (4.8-10.8)
[2025-02-27] MEDS: diphenhydrAMINE 25 MG CAP PO PRN (00:02)
[2025-02-27 05:19] LABS: Hematocrit 39.9 % (42.0-52.0); Hemoglobin 12.6 g/dL (14.0-18.0); Mean Corpuscular Hemoglobin 30.2 pg (27.0-31.0); Mean Corpuscular Volume 95.7 fL (78.0-98.0); Platelet Count 233 10x3/uL (130-400); Red Blood Cell (RBC) Count 4.17 mill/uL (4.70-6.10); White Blood Cell (WBC) Count 10.82 10x3/uL (4.8-10.8)
[2025-02-27] MEDS: Melatonin 3 MG TAB PO SCH (08:28)
[2025-02-27 16:15] LABS: Bacteria/HPF None Seen HPF (None Seen); CAUTI Indications for Culture Alt mental st,lethar; Glucose, Urine (Dipstick) Greater than 1000 mg/dL (Negative); Leukocyte Negative Leu/uL (Negative); Protein, Urine (Dipstick) 20 mg/dL (Neg-Trace); RBC/HPF 0-3 HPF (0-3); Specific Gravity, Urine 1.024 (1.002-1.036); WBC/HPF 0-3 HPF (0-3)
[2025-02-27 16:17] LABS: Urine Culture Reflex No No
[2025-02-27] MEDS: QUEtiapine 25 MG TAB PO SCH (20:48)
[2025-02-28 05:08] LABS: Hematocrit 41.2 % (42.0-52.0); Hemoglobin 13.1 g/dL (14.0-18.0); Mean Corpuscular Hemoglobin 30.4 pg (27.0-31.0); Mean Corpuscular Volume 95.6 fL (78.0-98.0); Platelet Count 258 10x3/uL (130-400); Red Blood Cell (RBC) Count 4.31 mill/uL (4.70-6.10); White Blood Cell (WBC) Count 8.52 10x3/uL (4.8-10.8)
[2025-02-28 05:26] LABS: Anion Gap 15 mmol/L (10-20); BUN (Urea Nitrogen) 21 mg/dL (8.4-25.7); Calc. Creatinine Clearance 75 mL/min (70-130); Calcium 10.2 mg/dL (7.8-10.44); Carbon Dioxide 22 mmol/L (23-31); Chloride 104 mmol/L (98-107); Glucose 170 mg/dL (83-110); Potassium 3.8 mmol/L (3.5-5.1); Sodium 137 mmol/L (136-145)
[2025-03-01] MEDS: QUEtiapine 25 MG TAB PO SCH ×2 (01:36→20:33)
[2025-03-02 04:50] LABS: Hematocrit 41.6 % (42.0-52.0); Hemoglobin 13.3 g/dL (14.0-18.0); Mean Corpuscular Hemoglobin 30.1 pg (27.0-31.0); Mean Corpuscular Volume 94.1 fL (78.0-98.0); Platelet Count 310 10x3/uL (130-400); Red Blood Cell (RBC) Count 4.42 mill/uL (4.70-6.10); White Blood Cell (WBC) Count 9.40 10x3/uL (4.8-10.8)
[2025-03-02 05:04] LABS: Anion Gap 15 mmol/L (10-20); BUN (Urea Nitrogen) 18 mg/dL (8.4-25.7); Calc. Creatinine Clearance 91 mL/min (70-130); Calcium 9.9 mg/dL (7.8-10.44); Carbon Dioxide 23 mmol/L (23-31); Chloride 103 mmol/L (98-107); Glucose 170 mg/dL (83-110); Potassium 3.5 mmol/L (3.5-5.1); Sodium 137 mmol/L (136-145)
[2025-03-02 23:21] LABS: Actual Bicarbonate (HCO3a) 21.9 mEq/L (22-28); Base Excess (BEa) -0.2 mEq/L (-2.0 to +3.0); CO2 Tension 29.3 mmHg (35.0-45.0); Calcium, Ionized (arterial) 1.25 mmol/L (1.12-1.30); Hematocrit-ABG 44 % (42.0-52.0); Hemoglobin (Hb) 14.9 g/dL (14.0-18.0); O2 Tension (PaO2), arterial 69.1 mmHg (> 70.0); Potassium - ABG Lab 3.95 mmol/L (3.70-5.30); Puncture Site Right Radial artery; pH, Arterial 7.492 (7.35-7.45)
[2025-03-02 23:22] LABS: ALV-art Gradient 44.005 mmHg (0-20)
[2025-03-03 01:08] LABS: #Basophils 0.07 10x3/uL (0.0-0.2); #Eosinophils 0.58 10x3/uL (0.0-0.7); #Monocytes 1.12 10x3/uL (0.11-0.59); #Neutrophils 5.54 10x3/uL (1.40-6.50); %Basophils 0.8 % (0.0-1.0); %Eosinophils 6.4 % (0.0-10.0); %Lymphocytes 17.7 % (21.0-51.0); %Monocytes 12.4 % (0.0-10.0); %Neutrophils 61.0 % (42.0-75.0); Hematocrit 44.9 % (42.0-52.0); Hemoglobin 15.0 g/dL (14.0-18.0); Mean Corpuscular Hemoglobin 31.4 pg (27.0-31.0); Mean Corpuscular Volume 93.9 fL (78.0-98.0); Platelet Count 309 10x3/uL (130-400); Red Blood Cell (RBC) Count 4.78 mill/uL (4.70-6.10); White Blood Cell (WBC) Count 9.06 10x3/uL (4.8-10.8)
[2025-03-03 01:25] LABS: ALT (SGPT) 10 U/L (Less than 45); AST (SGOT) 20 U/L (11-34); Albumin 2.8 g/dL (3.1-4.5); Alkaline Phosphatase 96 U/L (40-110); Anion Gap 15 mmol/L (10-20); BUN (Urea Nitrogen) 22 mg/dL (8.4-25.7); Bilirubin, Total 0.6 mg/dL (0.3-1.2); Calc. Creatinine Clearance 81 mL/min (70-130); Calcium 10.1 mg/dL (7.8-10.44); Carbon Dioxide 22 mmol/L (23-31); Chloride 103 mmol/L (98-107); Globulin 3.9 g/dL (2.4-3.5); Glucose 188 mg/dL (83-110); Magnesium 2.1 mg/dL (1.6-2.6); Potassium 4.2 mmol/L (3.5-5.1); Sodium 136 mmol/L (136-145)
[2025-03-03 03:59] LABS: Cardiac Risk 4.4 (Less than 4.5); Cholesterol 146.0 mg/dl (< 200 Desired); HDL Cholesterol 33.0 mg/dL (>60 Neg Risk); LDL Cholesterol, Calculated 80.0 mg/dL; Triglycerides 165.0 mg/dL (Less than 150)
[2025-03-03] MEDS: Gabapentin 300 MG CAP PO SCH (12:30)
[2025-03-03 14:20] VITALS: BMI 28.0
[2025-03-03 15:09] LABS: Bacteria/HPF None Seen HPF (None Seen); CAUTI Indications for Culture Dysuria,urgency,freq; Glucose, Urine (Dipstick) Greater than 1000 mg/dL (Negative); Leukocyte Negative Leu/uL (Negative); Protein, Urine (Dipstick) 20 mg/dL (Neg-Trace); RBC/HPF 0-3 HPF (0-3); Specific Gravity, Urine 1.030 (1.002-1.036); WBC/HPF 0-3 HPF (0-3); Yeast-Budding Rare HPF (None Seen)
[2025-03-03 15:13] LABS: Urine Culture Reflex No No
[2025-03-03] MEDS: Acetaminophen 500 MG TAB PO SCH (17:04)
[2025-03-03] MEDS: cefTRIAXone\\ROCEPHIN 1 GM in Sodium Chloride 0.9% 100 ML IVPB SCH (22:06)
[2025-03-03] MEDS: VANCOMYCIN 2 GRAM/400 ML Premix BAG IVPB SCH (22:40)
[2025-03-04] MEDS: Transdermal Patch Removal LIDOCAINE TOP SCH (03:18)
[2025-03-04 04:07] LABS: #Basophils 0.08 10x3/uL (0.0-0.2); #Eosinophils 0.68 10x3/uL (0.0-0.7); #Monocytes 1.02 10x3/uL (0.11-0.59); #Neutrophils 6.46 10x3/uL (1.40-6.50); %Basophils 0.8 % (0.0-1.0); %Eosinophils 6.5 % (0.0-10.0); %Lymphocytes 20.2 % (21.0-51.0); %Monocytes 9.7 % (0.0-10.0); %Neutrophils 61.3 % (42.0-75.0); Hematocrit 49.2 % (42.0-52.0); Hemoglobin 15.3 g/dL (14.0-18.0); Mean Corpuscular Hemoglobin 30.6 pg (27.0-31.0); Mean Corpuscular Volume 98.4 fL (78.0-98.0); Platelet Count 354 10x3/uL (130-400); Red Blood Cell (RBC) Count 5.00 mill/uL (4.70-6.10); White Blood Cell (WBC) Count 10.52 10x3/uL (4.8-10.8)
[2025-03-04 04:36] LABS: Vancomycin, Random 28.8 ug/mL (See Comment)
[2025-03-04 04:37] LABS: Anion Gap 17 mmol/L (10-20); BUN (Urea Nitrogen) 20 mg/dL (8.4-25.7); Calc. Creatinine Clearance 95 mL/min (70-130); Calcium 9.7 mg/dL (7.8-10.44); Carbon Dioxide 22 mmol/L (23-31); Chloride 106 mmol/L (98-107); Glucose 167 mg/dL (83-110); Potassium 4.2 mmol/L (3.5-5.1); Sodium 141 mmol/L (136-145)
[2025-03-04] MEDS: Vancomycin 1 GM Premix Bag IVPB SCH (13:39)
[2025-03-04] MEDS: VANCOMYCIN 1.75 GM/350 ML BAG 1.75 GM in Premix 1 BAG IVPB SCH (14:13)
[2025-03-05 05:37] LABS: #Basophils 0.06 10x3/uL (0.0-0.2); #Eosinophils 0.73 10x3/uL (0.0-0.7); #Monocytes 0.78 10x3/uL (0.11-0.59); #Neutrophils 4.70 10x3/uL (1.40-6.50); %Basophils 0.8 % (0.0-1.0); %Eosinophils 9.2 % (0.0-10.0); %Lymphocytes 19.9 % (21.0-51.0); %Monocytes 9.8 % (0.0-10.0); %Neutrophils 58.9 % (42.0-75.0); Hematocrit 42.4 % (42.0-52.0); Hemoglobin 13.5 g/dL (14.0-18.0); Mean Corpuscular Hemoglobin 30.6 pg (27.0-31.0); Mean Corpuscular Volume 96.1 fL (78.0-98.0); Platelet Count 337 10x3/uL (130-400); Red Blood Cell (RBC) Count 4.41 mill/uL (4.70-6.10); White Blood Cell (WBC) Count 7.97 10x3/uL (4.8-10.8)
[2025-03-05 05:52] LABS: Anion Gap 15 mmol/L (10-20); BUN (Urea Nitrogen) 15 mg/dL (8.4-25.7); Calc. Creatinine Clearance 87 mL/min (70-130); Calcium 9.2 mg/dL (7.8-10.44); Carbon Dioxide 23 mmol/L (23-31); Chloride 107 mmol/L (98-107); Glucose 132 mg/dL (83-110); Potassium 3.8 mmol/L (3.5-5.1); Sodium 141 mmol/L (136-145)
[2025-03-05] MEDS: Naproxen 500 MG TAB PO SCH (16:39)
[2025-03-06 05:12] LABS: #Basophils 0.07 10x3/uL (0.0-0.2); #Eosinophils 0.67 10x3/uL (0.0-0.7); #Monocytes 0.81 10x3/uL (0.11-0.59); #Neutrophils 3.65 10x3/uL (1.40-6.50); %Basophils 1.0 % (0.0-1.0); %Eosinophils 10.0 % (0.0-10.0); %Lymphocytes 21.7 % (21.0-51.0); %Monocytes 12.1 % (0.0-10.0); %Neutrophils 54.3 % (42.0-75.0); Hematocrit 43.2 % (42.0-52.0); Hemoglobin 13.7 g/dL (14.0-18.0); Mean Corpuscular Hemoglobin 30.4 pg (27.0-31.0); Mean Corpuscular Volume 96.0 fL (78.0-98.0); Platelet Count 355 10x3/uL (130-400); Red Blood Cell (RBC) Count 4.50 mill/uL (4.70-6.10); White Blood Cell (WBC) Count 6.72 10x3/uL (4.8-10.8)
[2025-03-06 05:27] LABS: Anion Gap 13 mmol/L (10-20); BUN (Urea Nitrogen) 13 mg/dL (8.4-25.7); Calc. Creatinine Clearance 88 mL/min (70-130); Calcium 9.3 mg/dL (7.8-10.44); Carbon Dioxide 25 mmol/L (23-31); Chloride 106 mmol/L (98-107); Glucose 141 mg/dL (83-110); Potassium 4.1 mmol/L (3.5-5.1); Sodium 140 mmol/L (136-145)
[2025-03-07 05:33] LABS: #Basophils 0.12 10x3/uL (0.0-0.2); #Eosinophils 0.84 10x3/uL (0.0-0.7); #Monocytes 0.81 10x3/uL (0.11-0.59); #Neutrophils 4.38 10x3/uL (1.40-6.50); %Basophils 1.5 % (0.0-1.0); %Eosinophils 10.5 % (0.0-10.0); %Lymphocytes 22.1 % (21.0-51.0); %Monocytes 10.1 % (0.0-10.0); %Neutrophils 54.7 % (42.0-75.0); Hematocrit 43.6 % (42.0-52.0); Hemoglobin 13.7 g/dL (14.0-18.0); Mean Corpuscular Hemoglobin 30.0 pg (27.0-31.0); Mean Corpuscular Volume 95.6 fL (78.0-98.0); Platelet Count 371 10x3/uL (130-400); Red Blood Cell (RBC) Count 4.56 mill/uL (4.70-6.10); White Blood Cell (WBC) Count 8.01 10x3/uL (4.8-10.8)
[2025-03-07 05:45] LABS: Anion Gap 15 mmol/L (10-20); BUN (Urea Nitrogen) 11 mg/dL (8.4-25.7); Calc. Creatinine Clearance 83 mL/min (70-130); Calcium 9.3 mg/dL (7.8-10.44); Carbon Dioxide 25 mmol/L (23-31); Chloride 105 mmol/L (98-107); Glucose 157 mg/dL (83-110); Potassium 3.7 mmol/L (3.5-5.1); Sodium 141 mmol/L (136-145)
[2025-03-08 07:37] VITALS: BP 153/81; TEMP 97.7
== END 2025-03-08 12:48 | disposition home or self-care (01) | DRG 470 ==
LOC: SDC 06:24 → SURG B 14:08 → OBSVTOIN 02-24 13:41 → CCU 03-02 23:29 → SURG B 03-04 13:07
PROVIDERS: ADMIT Orthopaedic Surgery; ATTEND Hospitalist
PROC: 0SRD0J9 Replacement of Left Knee Joint with Synthetic Substitute, Cemented, Open Approach (ICD-10-PCS; principal; 2025-02-24)
PROC: 0DH67UZ Insertion of Feeding Device into Stomach, Via Natural or Artificial Opening (ICD-10-PCS; 2025-02-24)
PROC: 3E0G76Z Introduction of Nutritional Substance into Upper GI, Via Natural or Artificial Opening (ICD-10-PCS; 2025-02-24)
PROC: 4A033R1 Measurement of Arterial Saturation, Peripheral, Percutaneous Approach (ICD-10-PCS; 2025-03-02)
PROC: XX20X89 Monitoring of Brain Electrical Activity, Computer-aided Detection and Notification, New Technology Group 9 (ICD-10-PCS; 2025-03-03)
PROC: 3E03329 Introduction of Other Anti-infective into Peripheral Vein, Percutaneous Approach (ICD-10-PCS; 2025-03-03)
PROC: 0T9B70Z Drainage of Bladder with Drainage Device, Via Natural or Artificial Opening (ICD-10-PCS; 2025-03-03)
DX: M17.12 Unilateral primary osteoarthritis, left knee (principal); F05 Delirium due to known physiological condition; E87.20 Acidosis, unspecified; E87.3 Alkalosis; I25.10 Atherosclerotic heart disease of native coronary artery without angina pectoris; E11.9 Type 2 diabetes mellitus without complications; I10 Essential (primary) hypertension; E78.5 Hyperlipidemia, unspecified; Z96.653 Presence of artificial knee joint, bilateral; Z66 Do not resuscitate; F03.90 Unspecified dementia, unspecified severity, without behavioral disturbance, psychotic disturbance, mood disturbance, and anxiety; G47.33 Obstructive sleep apnea (adult) (pediatric); F44.89 Other dissociative and conversion disorders; Z95.1 Presence of aortocoronary bypass graft; Z86.718 Personal history of other venous thrombosis and embolism; Z79.01 Long term (current) use of anticoagulants; Z88.8 Allergy status to other drugs, medicaments and biological substances; Z79.899 Other long term (current) drug therapy; Z90.49 Acquired absence of other specified parts of digestive tract; Z86.711 Personal history of pulmonary embolism
CPT/HCPCS: 36415; 36416; 36600; 70450; 70551; 74018; 80048; 80053; 80061; 80202; 81001; 82805; 83036; 83605; 83735; 84100; 84443; 84484; 85025; 85027; 87040; 87077; 87149; 87186; 93306; 95812; 95813; 95816; A4306; C1713; C1776; C1889; J0169; J0665; J0696; J1630; J1815; J2250; J2405; J2704; J2795; J3010; J3375; J7030; J7120